=== PATIENT | female | born 1970 | race Caucasian/White ===

== ENCOUNTER 2017-07-23 17:17 | Emergency (ER) | payer MEDICAID ==
[~2017-07-23] VITALS: Ht 157.5 cm; Wt 83.2 kg
[2017-07-23 17:31] VITALS: BP 133/88
[2017-07-23 18:25] LABS: BASOPHILS # (AUTO) 0.07 x10^3/uL (0-0.1); BASOPHILS % (AUTO) 1 % (0-1); EOSINOPHILS # (AUTO) 0.08 x10^3/uL (0-0.4); EOSINOPHILS % (AUTO) 1 % (1-7); LYMPHOCYTES # (AUTO) 2.19 x10^3/uL (1-3.4); LYMPHOCYTES % (AUTO) 36 % (22-44); MD NO; MEAN CORPUSCULAR HEMOGLOBIN 28.3 pg (27.0-34.8); MEAN CORPUSCULAR HGB CONC 33.4 g/dL (32.4-35.8); MEAN CORPUSCULAR VOLUME 84.7 fL (80-100); MEAN PLATELET VOLUME 7.1 fL (7.4-10.4); MONOCYTES # (AUTO) 0.38 x10^3/uL (0.2-0.8); MONOCYTES % (AUTO) 6 % (2-9); NEUTROPHILS # (AUTO) 3.43 x10^3/uL (1.8-6.8); NEUTROPHILS % (AUTO) 56 % (42-75); PLATELET COUNT 358 x10^3/uL (130-400); RED BLOOD COUNT 4.91 x10^6/uL (3.82-5.3); RED CELL DISTRIBUTION WIDTH 12.5 % (9.6-15.2)
[2017-07-23 18:43] LABS: CULTURE INDICATED? YES
[2017-07-23 18:45] LABS: CLUE CELLS NONE SEEN (NONE SEEN); WET PREP WBCS FEW (FEW)
[2017-07-23 21:12] LABS: MICROSCOPIC AUTO
[2017-07-23 21:15] LABS: CULTURE INDICATED? YES
== END 2017-07-23 21:26 | disposition left against medical advice (07) ==
LOC: ED 20:33
DX: D25.9 Leiomyoma of uterus, unspecified (principal); Z90.49 Acquired absence of other specified parts of digestive tract
CPT/HCPCS: 36415; 76830; 81001; 84703; 85025; 87086; 87210; 87491; 87591; 87808

== ENCOUNTER 2017-07-27 14:18 | Emergency (ER) | payer MEDICAID ==
[~2017-07-27] VITALS: Ht 157.5 cm; Wt 85.1 kg
[2017-07-27 14:19] VITALS: BP 123/79
[2017-07-27] MEDS ORDERED: CEFTRIAXONE 250 MG IM ONE (15:00)
[2017-07-27] MEDS ORDERED: AZITHROMYCIN 500 MG TABLET PO ONE (15:00)
[2017-07-27] MEDS ORDERED: AZITHROMYCIN 500 MG TABLET ONE (15:05)
[2017-07-27] MEDS ORDERED: CEFTRIAXONE 250 MG ONE (15:05)
== END 2017-07-27 15:38 | disposition home or self-care (01) ==
LOC: ED 15:33
DX: A54.03 Gonococcal cervicitis, unspecified (principal); A74.9 Chlamydial infection, unspecified; F41.9 Anxiety disorder, unspecified; Z88.0 Allergy status to penicillin; Z90.49 Acquired absence of other specified parts of digestive tract; Z85.850 Personal history of malignant neoplasm of thyroid
CPT/HCPCS: 96372; 99283; J0696

== ENCOUNTER 2019-02-21 17:09 | Emergency (ER) | payer MEDICAID, OTHER ==
[~2019-02-21] VITALS: Ht 157.5 cm; Wt 85.0 kg
--- NOTE | 2019-02-21 17:36 | NUR ---
PT ABMULATORY TO ROOM FROM TRIAGE. CHANGED INTO GOWN.
--- NOTE | 2019-02-21 17:45 | NUR ---
pt here today stating she has bed bug bites and she is having an allergic reaction to them. states, "I am allergic to all bugs that bite me. this has happened to me one time before when I lived at the [facility]." pt has bites on her legs, buttocks, and abdomen. red in color. pt states they are itchy. pt resting on gurney. nadn. vss. call light in reach. denies needs.
[2019-02-21] MEDS ORDERED: DIPHENHYDRAMINE 25 MG CAPSULE ONE (18:11)
--- NOTE | 2019-02-21 18:13 | NUR ---
PT MEDICATED PER EMAR. VSS. NADN. DENIES NEEDS. CALL LIGHT IN REACH.
[2019-02-21 18:28] LABS: BASOPHILS # (AUTO) 0.06 x10^3/uL (0-0.1); BASOPHILS % (AUTO) 1 % (0-1); EOSINOPHILS % (AUTO) 2 % (1-7); LYMPHOCYTES # (AUTO) 2.45 x10^3/uL (1-3.4); LYMPHOCYTES % (AUTO) 40 % (22-44); MD NO; MEAN CORPUSCULAR HEMOGLOBIN 28.2 pg (27.0-34.8); MEAN CORPUSCULAR HGB CONC 32.8 g/dL (32.4-35.8); MEAN CORPUSCULAR VOLUME 85.9 fL (80-100); MEAN PLATELET VOLUME 7.4 fL (7.4-10.4); MONOCYTES # (AUTO) 0.45 x10^3/uL (0.2-0.8); MONOCYTES % (AUTO) 7 % (2-9); NEUTROPHILS # (AUTO) 3.01 x10^3/uL (1.8-6.8); NEUTROPHILS % (AUTO) 50 % (42-75); PLATELET COUNT 292 x10^3/uL (130-400); RED BLOOD COUNT 4.56 x10^6/uL (3.82-5.3); RED CELL DISTRIBUTION WIDTH 13.3 % (9.6-15.2)
[2019-02-21] MEDS ORDERED: DIPHENHYDRAMINE 25 MG CAPSULE PO ONE (18:30)
[2019-02-21 18:38] LABS: ANION GAP 4 mmol/L (5-15); CHLORIDE 114 mmol/L (98-107); CREATININE 0.58 mg/dL (0.55-1.02)
--- NOTE | 2019-02-21 18:50 | NUR ---
REPORT GIVEN TO FLACA SANON.
--- NOTE | 2019-02-21 18:59 | NUR ---
BEDSIDE REPORT RECEIVED. PT IN BED. NO DISTRESS. VERBALIZED RELIEF FROM ITCHING FROM "THAT PILL THEY GAVE ME".
[2019-02-21 19:07] LABS: FREE T4 (FREE THYROXINE) 1.55 ng/dL (0.76-1.46)
[2019-02-21 19:46] VITALS: BP 104/47
[2019-03-08] MEDS ORDERED: LEVO150T PO (00:05)
[2019-03-08] MEDS ORDERED: CHOL400C PO (00:06)
[2019-03-10] MEDS ORDERED: LEVO125T PO (13:49)
[2019-03-10] MEDS ORDERED: NITR50CA11 PO (15:09)
== END 2019-02-21 19:48 | disposition home or self-care (01) ==
LOC: ED 19:42
DX: S30.860A Insect bite (nonvenomous) of lower back and pelvis, initial encounter (principal); S40.861A Insect bite (nonvenomous) of right upper arm, initial encounter; S40.862A Insect bite (nonvenomous) of left upper arm, initial encounter; S80.861A Insect bite (nonvenomous), right lower leg, initial encounter; S80.862A Insect bite (nonvenomous), left lower leg, initial encounter; Z90.49 Acquired absence of other specified parts of digestive tract; W57.XXXA Bitten or stung by nonvenomous insect and other nonvenomous arthropods, initial encounter; Y93.89 Activity, other specified; Y92.89 Other specified places as the place of occurrence of the external cause; Y99.8 Other external cause status
CPT/HCPCS: 36415; 80048; 84439; 84443; 84481; 85025; 93005; 99284; Q0163

== ENCOUNTER 2019-03-07 19:00 | Inpatient (IN) | payer MEDICAID, OTHER ==
[~2019-03-07] VITALS: Ht 157.5 cm; Wt 84.0 kg
[2019-03-10 13:49] VITALS: BP 125/87
== END 2019-03-10 15:45 | disposition home or self-care (01) | DRG 282 ==
LOC: ED 21:11 → EDIP 21:49 → 5SO 23:14 → DCLOUNGE 03-10 15:38
PROVIDERS: ADMIT Internal Medicine; ATTEND Internal Medicine
DX: I21.4 Non-ST elevation (NSTEMI) myocardial infarction (principal); B96.20 Unspecified Escherichia coli [E. coli] as the cause of diseases classified elsewhere; E11.9 Type 2 diabetes mellitus without complications; E78.5 Hyperlipidemia, unspecified; E89.0 Postprocedural hypothyroidism; N30.90 Cystitis, unspecified without hematuria; E66.9 Obesity, unspecified; F15.10 Other stimulant abuse, uncomplicated; F17.210 Nicotine dependence, cigarettes, uncomplicated; F41.9 Anxiety disorder, unspecified; F60.3 Borderline personality disorder; G43.909 Migraine, unspecified, not intractable, without status migrainosus; I25.2 Old myocardial infarction; Z63.8 Other specified problems related to primary support group; Z85.850 Personal history of malignant neoplasm of thyroid; Z82.49 Family history of ischemic heart disease and other diseases of the circulatory system; Z87.442 Personal history of urinary calculi; Z71.51 Drug abuse counseling and surveillance of drug abuser; Z79.899 Other long term (current) drug therapy; Z90.49 Acquired absence of other specified parts of digestive tract; Z88.0 Allergy status to penicillin; Z88.8 Allergy status to other drugs, medicaments and biological substances; Z88.6 Allergy status to analgesic agent; Z68.33 Body mass index [BMI] 33.0-33.9, adult
CPT/HCPCS: 36415; 71045; 71275; 78452; 80053; 80061; 80307; 81001; 83605; 84145; 84439; 84443; 84484; 84703; 85025; 85379; 87040; 87077; 87086; 87186; 93005; 93017; 93306; 99285; G0378; J0696; J1644; J2785; Q9967; A9502; C9898; J7030

== ENCOUNTER 2019-03-12 04:15 | Emergency (ER) | payer MEDICAID, OTHER ==
[~2019-03-12] VITALS: Ht 157.5 cm; Wt 82.6 kg
[2019-03-12 04:18] VITALS: BP 107/80
== END 2019-03-12 05:17 | disposition home or self-care (01) ==
LOC: ED 04:43
DX: E03.9 Hypothyroidism, unspecified (principal); I25.2 Old myocardial infarction; Z76.0 Encounter for issue of repeat prescription; Z87.891 Personal history of nicotine dependence
CPT/HCPCS: 99282

== ENCOUNTER 2019-06-14 18:02 | Emergency (ER) | payer MEDICAID ==
[~2019-06-14] VITALS: Ht 157.5 cm; Wt 83.0 kg
[~2019-06-14 18:02] MED LIST: CHOL400C PO; LEVO125T PO; LEVO150T PO; NITR50CA11 PO
[2019-06-14 19:36] LABS: MICROSCOPIC INDICATED
[2019-06-14 19:45] VITALS: BP 115/82
[2019-06-14 19:45] LABS: HCG UR SG 1.022 (1.003-1.030)
== END 2019-06-15 02:22 ==
LOC: ED 20:43
DX: N30.01 Acute cystitis with hematuria (principal); E03.9 Hypothyroidism, unspecified; I25.2 Old myocardial infarction; E66.9 Obesity, unspecified; Z90.49 Acquired absence of other specified parts of digestive tract; F17.200 Nicotine dependence, unspecified, uncomplicated
CPT/HCPCS: 81001; 81025; 87086; 99283